=== PATIENT | male | born 1990 | race Two or more races ===

== ENCOUNTER → 2025-03-19 | Emergency (ER) | payer BC ==
[~2025-03-19] VITALS: Ht 188 cm; Wt 98.4 kg
[~2025-03-19] MED LIST: PROTONIX40 M1 PO
== END | disposition left against medical advice (07) ==
LOC: ER 18:06
DX: Z53.21 Procedure and treatment not carried out due to patient leaving prior to being seen by health care provider (principal)

== ENCOUNTER → 2025-03-19 | Emergency (ER) | payer BC ==
[~2025-03-19] VITALS: Ht 188 cm; Wt 122.5 kg
== END | disposition left against medical advice (07) ==
LOC: ER 23:21
DX: Z53.21 Procedure and treatment not carried out due to patient leaving prior to being seen by health care provider (principal)